=== PATIENT | female | born 1965 | race Caucasian/White ===

== ENCOUNTER 2023-04-15 00:50 | Emergency (ER) | payer SELFPAY ==
[~2023-04-15] VITALS: Ht 170.2 cm; Wt 79.0 kg
[2023-04-15 01:06] VITALS: BP 142/70
[2023-04-15 01:45] LABS: BASOPHILS % 0.6 % (0.0-2.0); EOSINOPHILS % 2.1 % (0.0-5.0); HEMOGLOBIN. 14.7 g/dL (12.0-16.0); LYMPHOCYTES % 17.7 % (20.0-50.0); MEAN CORPUSCULAR HEMOGLOBIN 29.5 pg (28.0-32.0); MEAN PLATELET VOLUME 7.8 fl (7.4-10.4); MONOCYTES % 5.9 % (2.0-8.0); NEUTROPHILS % 73.7 % (40.0-76.0); PLATELET 336 x1000/uL (130-400); RED CELL DISTRIBUTION WIDTH 13.4 % (11.6-14.6)
[2023-04-15 01:51] LABS: CHLORIDE 104 mEq/L (98-107)
[2023-04-15] MEDS ORDERED: ONDANSETRON 4MG ODT PO STA (02:09)
[2023-04-15] MEDS ORDERED: ONDANSETRON 4MG ODT PO NR (05:00)
== END 2023-04-15 05:59 | disposition home or self-care (01) ==
LOC: ER 00:50
DX: R07.89 Other chest pain (principal); R10.13 Epigastric pain; R11.2 Nausea with vomiting, unspecified; I10 Essential (primary) hypertension
CPT/HCPCS: 36415; 71045; 76705; 80053; 83880; 84484; 85025; 93005; 99285; Q0162

== ENCOUNTER 2025-03-04 10:58 | Inpatient (IN) | payer SELFPAY ==
[~2025-03-04] VITALS: Ht 175.3 cm; Wt 87.5 kg
[2025-03-04 11:51] LABS: BASOPHILS % 0.7 % (0.0-2.0); EOSINOPHILS % 2.3 % (0.0-5.0); HEMATOCRIT. 45.6 % (36.0-48.0); LYMPHOCYTES % 40.5 % (20.0-50.0); MEAN CORPUSCULAR HEMOGLOBIN 28.2 pg (28.0-32.0); MEAN CORPUSCULAR HGB CONC 32.9 g/dL (31.0-37.0); MEAN CORPUSCULAR VOLUME 85.6 fL (81.0-99.0); MEAN PLATELET VOLUME 8.1 fl (7.4-10.4); MONOCYTES % 7.6 % (2.0-8.0); NEUTROPHILS % 48.9 % (40.0-76.0); PLATELET 341 x1000/uL (130-400); RED BLOOD CELL COUNT 5.32 mill/uL (4.2-5.4); RED CELL DISTRIBUTION WIDTH 13.8 % (11.6-14.6); WHITE BLOOD COUNT 8.7 x1000/uL (4.5-11.0)
[2025-03-04 11:52] LABS: CHLORIDE 106 mEq/L (98-107); POTASSIUM 3.3 mEq/L (3.5-5.1); SODIUM 141 mEq/L (136-145)
[2025-03-04 11:53] LABS: CARBON DIOXIDE 28 mEq/L (21-32)
[2025-03-04 11:54] LABS: CALCIUM 10.4 mg/dL (8.7-10.4)
[2025-03-04 11:58] LABS: CREATININE 0.9 mg/dL (0.6-1.0); GLUCOSE 117 mg/dL (70-105)
[2025-03-04 11:59] LABS: TROPONIN I HIGH SENSITIVITY 4 ng/L (3.0-34); UREA NITROGEN BLOOD 13 mg/dL (9-23)
[2025-03-04 12:00] LABS: ALANINE AMINOTRANSFERASE 71 IU/L (10-49); ALBUMIN 4.6 g/dL (3.2-4.8); ASPARTATE AMINOTRANSFERASE 141 IU/L (<34)
[2025-03-04 12:01] LABS: BILIRUBIN DIRECT 0.3 mg/dL (<=3.0); PROTEIN TOTAL 7.7 g/dL (6.0-8.3)
[2025-03-04 12:39] LABS: CLARITY URINE CLEAR (CLEAR); COLOR URINE YELLOW (YELLOW); GLUCOSE URINE NEGATIVE (NEGATIVE); KETONES URINE TRACE (NEGATIVE); LEUKOCYTE ESTERASE URINE 1+ (NEGATIVE); NITRITE URINE NEGATIVE (NEGATIVE); OCCULT BLOOD URINE TRACE (NEGATIVE); PH URINE 8.5 (4.5-8.0); PROTEIN URINE NEGATIVE (NEGATIVE); SPECIFIC GRAVITY URINE 1.019 (1.005-1.030)
[2025-03-04 12:47] LABS: INR 0.9; PROTHROMBIN TIME 9.9 sec (9.6-11.0)
[2025-03-04 12:59] LABS: SQUAMOUS EPITHELIAL CELL URINE 1+ /lpf (RARE/1+)
[2025-03-04 13:00] LABS: WBC URINE 0-2 /hpf (0-2)
[2025-03-04 13:01] LABS: BACTERIA URINE 1+
[2025-03-04] MEDS: MORPHINE SULFATE 4 MG/ML INJ (FOR IV/IM USE) IV ONE (14:00)
[2025-03-04] MEDS ORDERED: GUAIFENESIN 200MG/10ML SUGAR FREE UDC PO PRN (14:15)
[2025-03-04] MEDS ORDERED: IPRATROPIUM/ALBUTEROL 0.5-3(2.5)MG/3ML NEB HHN PRN (14:15)
[2025-03-04] MEDS ORDERED: CLONIDINE 0.1MG TABLET PO PRN (14:15)
[2025-03-04] MEDS ORDERED: DEXTROSE 50% WATER 50ML SYRINGE IV PRN (14:15)
[2025-03-04] MEDS ORDERED: ACETAMINOPHEN 325MG TABLET PO PRN (14:15)
[2025-03-04] MEDS ORDERED: DOCUSATE SODIUM 100MG CAPSULE PO PRN (14:15)
[2025-03-04 14:33] LABS: TROPONIN I HIGH SENSITIVITY 5 ng/L (3.0-34)
[2025-03-04] MEDS ORDERED: HYDRALAZINE 20MG/ML VIAL IV PRN (15:00)
[2025-03-04] MEDS: POTASSIUM CHLORIDE 20MEQ TABLET SR PO NR (15:25)
[2025-03-04] MEDS: PANTOPRAZOLE SODIUM 40 MG/VIAL IV NR (15:25)
[2025-03-04 16:03] LABS: LDL CHOLESTEROL 153 mg/dL (5-100); TRIGLYCERIDE 145 mg/dL (0-150)
[2025-03-04 16:04] LABS: CHOLESTEROL 221 mg/dL (<200); HDL CHOLESTEROL 49 mg/dL (>65); PHOSPHORUS 2.1 mg/dL (2.5-4.9)
[2025-03-04 16:36] VITALS: BP 160/74; PULSE 74; RESP 20; TEMP 36.5
[2025-03-04] MEDS: BLOOD SUGAR DIAGNOSTIC STRIP TEST SCH (17:00)
[2025-03-04] MEDS: INSULIN LISPRO 100 UNITS/ML SUBCUT SCH (18:20)
[2025-03-04 20:00] VITALS: BP 155/102; PULSE 78; RESP 19; TEMP 36.5; O2SAT 100
[2025-03-04] MEDS: ENOXAPARIN 40MG/0.4ML SYR SUBCUT SCH (20:44)
[2025-03-04] MEDS: ACETAMINOPHEN 325MG TABLET PO PRN (20:44)
[2025-03-04] MEDS: ATORVASTATIN CALCIUM 40MG TABLET PO SCH (20:45)
[2025-03-04 21:00] VITALS: BP 154/81
[2025-03-04] MEDS: ONDANSETRON HCL 4MG/2ML INJ IV PRN (23:51)
[2025-03-05] VITALS: BP 115/61; PULSE 75; RESP 20; TEMP 36.5; O2SAT 99
[2025-03-05 00:03] LABS: *AMPHETAMINES SCREEN URINE NEGATIVE (NEGATIVE); *BARBITURATES SCREEN URINE NEGATIVE (NEGATIVE); *BENZODIAZEPINES SCREEN URINE NEGATIVE (NEGATIVE); *COCAINE SCREEN URINE NEGATIVE (NEGATIVE); CANNABINOID URINE SCREEN NEGATIVE (NEGATIVE); ECSTASY MDMA SCREEN URINE NEGATIVE (NEGATIVE); METHADONE URINE SCREEN NEGATIVE (NEGATIVE); OPIATES URINE SCREEN PRESUMPTIVE POSITIVE (NEGATIVE); PHENCYCLIDINE URINE SCREEN NEGATIVE (NEGATIVE)
[2025-03-05 04:00] VITALS: BP 109/61; PULSE 75; RESP 20; TEMP 36.3; O2SAT 98
[2025-03-05 06:16] LABS: POTASSIUM 3.7 mEq/L (3.5-5.1)
[2025-03-05 06:18] LABS: CALCIUM 9.3 mg/dL (8.7-10.4)
[2025-03-05 06:24] LABS: BASOPHILS % 0.6 % (0.0-2.0); EOSINOPHILS % 4.3 % (0.0-5.0); HEMATOCRIT. 40.7 % (36.0-48.0); HEMOGLOBIN. 13.4 g/dL (12.0-16.0); LYMPHOCYTES % 22.5 % (20.0-50.0); MEAN CORPUSCULAR HEMOGLOBIN 28.7 pg (28.0-32.0); MEAN CORPUSCULAR VOLUME 86.8 fL (81.0-99.0); MEAN PLATELET VOLUME 7.9 fl (7.4-10.4); MONOCYTES % 9.2 % (2.0-8.0); NEUTROPHILS % 63.4 % (40.0-76.0); PLATELET 288 x1000/uL (130-400); RED BLOOD CELL COUNT 4.69 mill/uL (4.2-5.4); RED CELL DISTRIBUTION WIDTH 13.7 % (11.6-14.6); WHITE BLOOD COUNT 6.9 x1000/uL (4.5-11.0)
[2025-03-05 08:00] VITALS: BP 112/74; PULSE 61; RESP 17; TEMP 37.6; O2SAT 98
[2025-03-05] MEDS: PANTOPRAZOLE 40MG DR TABLET PO SCH (08:44)
[2025-03-05] MEDS: HYDROCHLOROTHIAZIDE 12.5MG CAPSULE PO SCH (08:45)
[2025-03-05] MEDS: LISINOPRIL 10MG TABLET PO SCH (08:45)
[2025-03-05] MEDS: LORAZEPAM 0.5MG TABLET PO PRN (11:28)
[2025-03-05 11:33] VITALS: BP 136/60; PULSE 69; RESP 17; TEMP 36.6; O2SAT 98
[2025-03-05] MEDS ORDERED: ATOR20TA65 MT (12:36)
[2025-03-05] MEDS ORDERED: PROT40 MT (12:37)
[2025-03-05 13:40] VITALS: BP 136/60; PULSE 69; TEMP 97.9; O2SAT 98
== END 2025-03-05 17:10 | disposition home or self-care (01) | DRG 243 ==
LOC: ER 10:58 → EDBEDREQTM 13:46 → EDBEDREQ 13:46 → 7WST 19:03
PROVIDERS: ADMIT Internal Medicine; ATTEND Internal Medicine
DX: K21.9 Gastro-esophageal reflux disease without esophagitis (principal); E83.39 Other disorders of phosphorus metabolism; K80.70 Calculus of gallbladder and bile duct without cholecystitis without obstruction; E87.6 Hypokalemia; I10 Essential (primary) hypertension; I16.0 Hypertensive urgency; E78.5 Hyperlipidemia, unspecified; Z79.899 Other long term (current) drug therapy
CPT/HCPCS: 36415; 71045; 74176; 80048; 80061; 80076; 80305; 81003; 82962; 83036; 83735; 83880; 84100; 84484; 85025; 93005; 97161; 97166; 99285; J1650; J2270; J2405; J2470

== ENCOUNTER 2025-03-08 14:10 | Inpatient (IN) | payer SELFPAY ==
[~2025-03-08] VITALS: Ht 167.6 cm; Wt 86.2 kg
[~2025-03-08 14:10] MED LIST: ATOR20TA65 MT; PROT40 MT
[2025-03-08 14:12] VITALS: O2SAT 99
[2025-03-08] MEDS: ONDANSETRON 4MG ODT PO STA (15:10)
[2025-03-08] MEDS: ACETAMINOPHEN 325MG TABLET PO STA (15:10)
[2025-03-08] MEDS: MAGNESIUM/ALUMINUM HYDROXIDE/SIMETHICONE 30ML UDC PO STA (15:10)
[2025-03-08] MEDS: KETOROLAC 30MG/ML VIAL IM STA (15:12)
[2025-03-08] MEDS: BLOOD SUGAR DIAGNOSTIC STRIP TEST SCH (16:00)
[2025-03-08 16:10] LABS: BASOPHILS % 0.6 % (0.0-2.0); EOSINOPHILS % 2.1 % (0.0-5.0); HEMATOCRIT. 41.4 % (36.0-48.0); HEMOGLOBIN. 13.9 g/dL (12.0-16.0); LYMPHOCYTES % 18.4 % (20.0-50.0); MEAN CORPUSCULAR HEMOGLOBIN 29.1 pg (28.0-32.0); MEAN CORPUSCULAR HGB CONC 33.7 g/dL (31.0-37.0); MEAN CORPUSCULAR VOLUME 86.3 fL (81.0-99.0); MEAN PLATELET VOLUME 7.9 fl (7.4-10.4); MONOCYTES % 6.7 % (2.0-8.0); NEUTROPHILS % 72.2 % (40.0-76.0); PLATELET 317 x1000/uL (130-400); RED BLOOD CELL COUNT 4.79 mill/uL (4.2-5.4); RED CELL DISTRIBUTION WIDTH 13.4 % (11.6-14.6); WHITE BLOOD COUNT 8.9 x1000/uL (4.5-11.0)
[2025-03-08 16:19] LABS: CHLORIDE 107 mEq/L (98-107); INR 0.9; POTASSIUM 3.7 mEq/L (3.5-5.1); PROTHROMBIN TIME 10.2 sec (9.6-11.0); SODIUM 141 mEq/L (136-145)
[2025-03-08] MEDS: SODIUM CHLORIDE 0.9% 1,000 ML IV ONE (16:19)
[2025-03-08] MEDS: ONDANSETRON HCL 4MG/2ML INJ IV ONE (16:19)
[2025-03-08] MEDS: MORPHINE SULFATE 4 MG/ML INJ (FOR IV/IM USE) IV ONE (16:19)
[2025-03-08 16:20] LABS: CALCIUM 10.2 mg/dL (8.7-10.4); CARBON DIOXIDE 31 mEq/L (21-32)
[2025-03-08 16:25] LABS: CREATININE 1.2 mg/dL (0.6-1.0); GLUCOSE 110 mg/dL (70-105); UREA NITROGEN BLOOD 18 mg/dL (9-23)
[2025-03-08 16:27] LABS: ALANINE AMINOTRANSFERASE 365 IU/L (10-49); ALBUMIN 4.4 g/dL (3.2-4.8); ASPARTATE AMINOTRANSFERASE 448 IU/L (<34); BILIRUBIN DIRECT 0.7 mg/dL (<=3.0); BILIRUBIN TOTAL 1.5 mg/dL (0.1-1.0); PROTEIN TOTAL 7.2 g/dL (6.0-8.3)
[2025-03-08 16:35] LABS: CLARITY URINE CLEAR (CLEAR); COLOR URINE YELLOW (YELLOW); GLUCOSE URINE NEGATIVE (NEGATIVE); KETONES URINE NEGATIVE (NEGATIVE); LEUKOCYTE ESTERASE URINE 1+ (NEGATIVE); NITRITE URINE NEGATIVE (NEGATIVE); OCCULT BLOOD URINE TRACE (NEGATIVE); PH URINE 8.5 (4.5-8.0); PROTEIN URINE NEGATIVE (NEGATIVE); SPECIFIC GRAVITY URINE 1.015 (1.005-1.030)
[2025-03-08 17:00] LABS: BACTERIA URINE NONE SEEN; RBC URINE 0-2 /hpf (0-2); SQUAMOUS EPITHELIAL CELL URINE FEW /lpf (RARE/1+)
[2025-03-08] MEDS ORDERED: LORAZEPAM 0.5MG TABLET PO PRN (17:45)
[2025-03-08] MEDS ORDERED: IPRATROPIUM/ALBUTEROL 0.5-3(2.5)MG/3ML NEB HHN PRN (17:45)
[2025-03-08] MEDS ORDERED: ACETAMINOPHEN 325MG TABLET PO PRN ×2 (17:45)
[2025-03-08] MEDS ORDERED: METRONIDAZOLE 500 MG PREMIX 100 ML IV ONE (17:45)
[2025-03-08] MEDS ORDERED: ONDANSETRON HCL 4MG/2ML INJ IV PRN (17:45)
[2025-03-08] MEDS ORDERED: DEXTROSE 50% WATER 50ML SYRINGE IV PRN (17:45)
[2025-03-08] MEDS ORDERED: KETOROLAC 15MG/ML VIAL IV PRN (17:45)
[2025-03-08] MEDS ORDERED: DOCUSATE SODIUM 100MG CAPSULE PO PRN (17:45)
[2025-03-08] MEDS ORDERED: GUAIFENESIN 200MG/10ML SUGAR FREE UDC PO PRN (17:45)
[2025-03-08] MEDS ORDERED: CLONIDINE 0.1MG TABLET PO PRN (17:45)
[2025-03-08 18:00] VITALS: BP 133/72; PULSE 80; RESP 16; TEMP 36.7; O2SAT 100
[2025-03-08] MEDS: DEXT 5%/0.45% NACL 1000ML 1,000 ML IV SCH (18:00)
[2025-03-08] MEDS: CEFTRIAXONE 2GM/50ML 50 ML IV SCH (19:58)
[2025-03-08] MEDS: METRONIDAZOLE 500 MG PREMIX 100 ML IV NR (19:59)
[2025-03-08 20:00] VITALS: BP 139/78; PULSE 60; RESP 18; TEMP 36.3; TEMP 36.5; O2SAT 97; O2SAT 99
[2025-03-08] MEDS: ATORVASTATIN CALCIUM 40MG TABLET PO SCH (21:43)
[2025-03-08 22:00] VITALS: BP 139/78; PULSE 60; RESP 18; TEMP 36.5
[2025-03-09] MEDS: PANTOPRAZOLE 40MG DR TABLET PO SCH (06:32)
[2025-03-09 08:00] VITALS: BP 141/77; PULSE 68; RESP 18; TEMP 36.7; O2SAT 100
[2025-03-09 08:34] LABS: BASOPHILS % 0.8 % (0.0-2.0); EOSINOPHILS % 5.8 % (0.0-5.0); HEMATOCRIT. 37.5 % (36.0-48.0); HEMOGLOBIN. 12.6 g/dL (12.0-16.0); LYMPHOCYTES % 30.2 % (20.0-50.0); MEAN CORPUSCULAR HEMOGLOBIN 29.1 pg (28.0-32.0); MEAN CORPUSCULAR HGB CONC 33.6 g/dL (31.0-37.0); MEAN CORPUSCULAR VOLUME 86.5 fL (81.0-99.0); MEAN PLATELET VOLUME 8.4 fl (7.4-10.4); MONOCYTES % 8.6 % (2.0-8.0); NEUTROPHILS % 54.6 % (40.0-76.0); PLATELET 268 x1000/uL (130-400); RED BLOOD CELL COUNT 4.34 mill/uL (4.2-5.4); RED CELL DISTRIBUTION WIDTH 13.6 % (11.6-14.6); WHITE BLOOD COUNT 5.3 x1000/uL (4.5-11.0)
[2025-03-09 08:50] LABS: CARBON DIOXIDE 29 mEq/L (21-32); CHLORIDE 110 mEq/L (98-107); POTASSIUM 3.9 mEq/L (3.5-5.1); SODIUM 142 mEq/L (136-145)
[2025-03-09 08:51] LABS: CALCIUM 9.3 mg/dL (8.7-10.4)
[2025-03-09 08:56] LABS: CREATININE 0.8 mg/dL (0.6-1.0); GLUCOSE 90 mg/dL (70-105); UREA NITROGEN BLOOD 18 mg/dL (9-23)
[2025-03-09 08:58] LABS: PHOSPHORUS 3.8 mg/dL (2.5-4.9)
[2025-03-09] MEDS: LISINOPRIL 20MG TABLET PO SCH (11:10)
[2025-03-09 12:00] VITALS: BP 132/82; PULSE 66; RESP 18; TEMP 36.8; O2SAT 99
[2025-03-09] MEDS ORDERED: LIP40 PO ×2 (16:02→17:30)
[2025-03-09] MEDS ORDERED: LEVO750T68 PO (16:03)
[2025-03-09] MEDS ORDERED: LISI20TA31 PO ×2 (16:03→17:30)
[2025-03-09] MEDS ORDERED: METR-167 MT ×2 (16:03→17:30)
[2025-03-09] MEDS ORDERED: PANT40TA51 PO ×2 (16:03→17:30)
[2025-03-09] MEDS ORDERED: LEVO750T68 MT (17:30)
== END 2025-03-09 17:05 | disposition home or self-care (01) ==
LOC: ER 14:18 → EDBEDREQ 15:55 → 7EST 16:55 → EDBEDREQTM 16:58 → EDBEDREQ 16:58
PROVIDERS: ADMIT Hospitalist; ATTEND Hospitalist
DX: K80.00 Calculus of gallbladder with acute cholecystitis without obstruction (principal); E78.5 Hyperlipidemia, unspecified; I10 Essential (primary) hypertension
CPT/HCPCS: 36415; 76705; 80048; 80076; 81003; 82962; 83036; 83735; 84100; 85025; 99285; A4606; J0696; J1885; J2270; J2405; J3490; J7030; Q0162